=== PATIENT | female | born 1945 | race Caucasian/White ===

== ENCOUNTER 2016-08-06 06:27 | Inpatient (IN) | payer OTHER ==
[2016-07-19 13:23] VITALS: BMI 26.0
--- NOTE | 2016-07-19 14:04 | PAT Medication Instructions ---
Service Date Jul 19, 2016. Current Home Medication List Biotin (Biotin 5000), 1 TAB PO HS Cevimeline Hcl (Cevimeline Hcl), 30 MG PO TID Cholecalciferol (Vitamin D3), 1 TAB PO QAM Citalopram (Citalopram Hydrobromide), 2 MG PO HS Cyanocobalamin (Vitamin B-12), 1,000 MCG PO QAM Cyclosporine (Ophth) (Restasis), 1 DROP OP BID Esomeprazole Magnesium (Nexium), 20 MG PO QAM Fesoterodine Fumarate (Toviaz), 1 TAB PO HS Lorazepam (Ativan), 1 MG PO HS Mesalamine (Apriso), 4 CAP PO QAM Kqpidlmcyzj-Vatsj-Sjjsqexml Bl (Uribel), 1 CAP PO BID Metoprolol Tartrate (Lopressor) (Lopressor), 25 MG PO QAM Multiple Vitamins W/ Minerals (Ocuvite), 1 TAB PO NOON Oxycodone Ir (Roxicodone Ir), 10 MG PO HS PRN for Pain Pediatric Multiple Vitamin W/ (Gummi Bear Multivitamin/M), 1 TAB PO HS Probiotic Product (Probiotic), 1 CAP PO QAM Vitamins C & E (Vitamin C), 1 CAP PO NOON [Hydroxycut], 2 TAB PO BID Medication Instructions For Your Scheduled Surgery - Hold the following medications 10 days prior to surgery: Biotin (Biotin 5000), 1 TAB PO HS Vitamins C & E (Vitamin C), 1 CAP PO NOON - Hold the following medications 24 hours prior to surgery: Seqcoeudysr-Nvxis-Shglxjxpf Bl (Uribel), 1 CAP PO BID Hydroxycut 2 TAB PO BID - Hold the following medications the morning of surgery: Probiotic Product (Probiotic), 1 CAP PO QAM Multiple Vitamins W/ Minerals (Ocuvite), 1 TAB PO NOON Cyanocobalamin (Vitamin B-12), 1,000 MCG PO QAM Mesalamine (Apriso), 4 CAP PO QAM (can take after surgery) Cholecalciferol (Vitamin D3), 1 TAB PO QAM Cevimeline Hcl (Cevimeline Hcl), 30 MG PO TID (can take after surgery) - Take the following medications the morning of surgery with a sip of water: Metoprolol Tartrate (Lopressor) (Lopressor), 25 MG PO QAM Esomeprazole Magnesium (Nexium), 20 MG PO QAM Cyclosporine (Ophth) (Restasis), 1 DROP OP BID - Take the following medications as scheduled the night before surgery: Pediatric Multiple Vitamin W/ (Gummi Bear Multivitamin/M), 1 TAB PO HS Fesoterodine Fumarate (Toviaz), 1 TAB PO HS Lorazepam (Ativan), 1 MG PO HS Cyclosporine (Ophth) (Restasis), 1 DROP OP BID Citalopram (Citalopram Hydrobromide), 2 MG PO HS Oxycodone Ir (Roxicodone Ir), 10 MG PO HS PRN for Pain Cevimeline Hcl (Cevimeline Hcl), 30 MG PO TID If you have any questions please call us at [phone] or [phone] ( [place]) or [phone]
[2016-07-19 14:24] LABS: BASO % 0.3 %; BASO ABS # 0.02 K/uL (0-0.2); COMPLETE YES; EOS % 5.8 %; IG% 0.3 %; LYMPH % 22.2 %; LYMPH ABS # 1.56 K/uL (1.2-3.4); MEAN CELL VOLUME 92.3 fL (80-100); MEAN CORPUSCULAR HEMOGLOBIN 30.4 pg (25-34); MEAN PLATELET VOLUME 10.5 fL (7.4-10.4); MONO % 8.5 %; NEUT % 62.9 %; PLATELET COUNT 213 K/uL (130-400); RED BLOOD COUNT 4.01 M/uL (4.2-5.4); WHITE BLOOD COUNT 7.04 K/uL (4.8-10.8)
--- NOTE | 2016-07-19 14:27 | DIAGNOSTIC IMAGING REPORT ---
CHEST 2 VIEWS ROUTINE CLINICAL HISTORY: Preoperative evaluation. COMPARISON STUDY: No previous studies for comparison. FINDINGS: Lung volumes are normal. Lungs are clear. There is no pneumothorax or pleural effusion. Cardiac size is normal. Mediastinal contours are normal. No evidence of pulmonary edema. IMPRESSION: No acute cardiopulmonary findings. Electronically signed by: Goldy Masters M.D. 07/19/2016 2:25 PM Dictated Date/Time: 07/19/2016 2:25 PM
[2016-07-19 14:35] LABS: PARTIAL THROMBOPLASTIN RATIO 1.1; PROTHROMBIN TIME (PATIENT) 10.7 SECONDS (9.0-12.0)
[2016-07-19 14:56] LABS: BUN/CREATININE RATIO 14.8 (10-20); CALCIUM 9.1 mg/dl (8.5-10.1); POTASSIUM 4.3 mmol/L (3.5-5.1)
[2016-07-19 15:07] LABS: URINE APPEARANCE CLEAR (CLEAR); URINE BILIRUBIN NEG (NEG); URINE COLOR YELLOW; URINE NITRITE NEG (NEG); URINE PH 5.5 (4.5-7.5); URINE SPECIFIC GRAVITY 1.009 (1.000-1.030); UROBILINOGEN NEG (NEG); ZZUR CULT IF INDIC CLEAN CATCH NO
[2016-07-19 15:09] LABS: MANUAL MICROSCOPIC REQUIRED? NO; REVIEW REQ? NO
--- NOTE | 2016-08-03 08:39 | HISTORY & PHYSICAL EXAMINATION ---
DATE OF ADMISSION: 08/06/2016 CHIEF COMPLAINT: Right hip pain. HISTORY OF PRESENT ILLNESS: Raquel is a 71-year-old female with a multiple-year history of pain in her right hip. The patient rates her pain a 10/10. She has pain with her daily activities. She has limited standing and walking tolerance. Pain is worse with weightbearing. The patient has been ambulating with a cane. She has been taking oxycodone with minimal relief. She has failed conservative treatment and is scheduled for right hip replacement. PAST MEDICAL HISTORY: Anxiety, tachycardia and history of MRSA. She denies heart disease or DVT. PAST SURGICAL HISTORY: Partial hysterectomy, hemorrhoidectomy, hernia repair, left total hip, fatty tumor excision and bladder repair. SOCIAL HISTORY: The patient denies alcohol or tobacco use. She lives in a single story home. She is and retired but still works part-time as a [employer]. FAMILY HISTORY: Negative for DVT. MEDICATIONS: Restasis 0.05%, cevimeline 30 mg, Apriso ER 0.375 gram capsule daily, methenamine 1 gram, lorazepam 0.5 mg, metoprolol 25 mg, citalopram 20 mg, oxycodone 5 mg, testosterone fumarate 4 mg. ALLERGIES: BIAXIN, CAFFEINE, FLUMADINE, VICODIN, SULFALENE, SULFA, TERAZOL, TRAMADOL, CEPHALEXIN. REVIEW OF SYSTEMS: See HPI. Ten other systems reviewed, all negative. PHYSICAL EXAMINATION: VITAL SIGNS: Height 5 feet 1, weight 144 pounds, BMI is 27. GENERAL: This is a well-developed, well-nourished female who is alert and oriented x3. Mood and affect are appropriate. HEAD, EYES, EARS, NOSE, AND THROAT: Normocephalic, atraumatic. Mucous membranes are moist and intact. NECK: Supple without lymphadenopathy. HEART: Regular rate and rhythm without murmurs, rubs or gallops. LUNGS: Clear to auscultation without wheezes or rhonchi. ABDOMEN: Soft and nontender. Bowel sounds are equal and active. EXTREMITIES: No ecchymosis, redness or warmth. Thigh and calf are soft and nontender. Log roll of the hip reproduces pain in the groin. Range of motion is decreased. She is neurovascularly intact with +5/5 strength. X-RAY EXAMINATION: AP and lateral views show joint space narrowing and large osteophyte formation of the right hip. IMPRESSION: Degenerative joint disease, right hip. PLAN: The patient will be admitted for a right total hip arthroplasty. We will plan on aspirin for DVT prophylaxis. PCP is Dr. Meyers in [place]. The patient will have home physical therapy postoperatively.
[2016-08-06] VITALS (12 sets, daily range): BP systolic 85–126; BP diastolic 49–69; PULSE 63–90; TEMP 36.4–36.9; O2SAT 95–98; Ht 154.9 cm; Wt 65.5 kg
[~2016-08-06] VITALS: Ht 154.9 cm; Wt 65.5 kg
[~2016-08-06 06:27] MED LIST: ACETAMINOPHEN 500 MG TAB PO SCH; BIOTCAP2 PO; CEVI1CAP PO; CHOL1000 PO; CLINDAMYCIN 600 MG/54 ML D5W 54 ML IV SCH; CLX20 PO; CYAN10005 PO; CYCL0.052 OP; DEXAMETHASONE 4 MG TAB PO SCH; ESOM20CA PO; FAMOTIDINE 20 MG TAB PO SCH; FESO8TAB PO; GABAPENTIN 300 MG CAP PO SCH; HYDROXYCUT PO; LACTATED RINGER'S 1000ML 1,000 ML IV SCH; LACTATED RINGER'S 1000ML IV SCH; LORA-741 PO; MESA0.37 PO; METH118C PO; METO25TA56 PO; METOCLOPRAMIDE HCL 10 MG TAB PO SCH; MISCCAP80 PO; MULT-188 PO; OXYC1TAB3 PO; OXYCODONE HCL 10 MG TABCR (OXYCONTIN) PO SCH; PEDICHW34 PO; POLYMYXIN B SULFATE 100,000 UNITS in NSS 100ML IR SCH; ROPIVACAINE 5MG/ML 30 ML 150 MG, BUPIVACAINE/EPINEPHR 0.5% MPF 30 ML, KETOROLAC TROMETH... INFIL SCH; TRANEXAMIC ACID INJ 1,000 MG in SODIUM CHLORIDE 0.9% 100ML 100 ML IV SCH; VANCOMYCIN INJ 400 MG in NSS 100ML IR SCH; VITACAP26 PO
[2016-08-06] MEDS ORDERED: BUPIVACAINE 0.5 % 5 MG/1 ML PF 10ML VIAL ONE (06:29)
[2016-08-06] MEDS ORDERED: PROPOFOL IV EMULSION 10 MG/ML 20 ML VIAL IV ONE (07:36)
[2016-08-06] MEDS ORDERED: MIDAZOLAM HCL 1 MG/ML 2ML VIAL ONE ×2 (07:36)
[2016-08-06] MEDS ORDERED: FENTANYL CITRATE INJ 50 MCG/1 ML 2 ML VIAL ONE (07:36)
[2016-08-06] MEDS ORDERED: ONDANSETRON INJ 2 MG/ML 2 ML VIAL ONE (07:36)
[2016-08-06] MEDS ORDERED: LIDOCAINE HCL 2% 2 ML VIAL (20MG/ML) ONE (07:36)
--- NOTE | 2016-08-06 08:26 | History & Physical Bridge Note ---
H&P Re-Evaluation Bridge Note: I have examined the patient, reviewed the History & Physical and in the interval since the performance of the History & Physical I have noted the following changes of clinical significance: No changes noted
[2016-08-06] MEDS ORDERED: POVIDONE-IODINE OP SOLN 30 ML BTL ONE (08:59)
[2016-08-06] MEDS ORDERED: BACITRACIN 50000 UNIT VIAL ONE (08:59)
[2016-08-06] MEDS ORDERED: ORTHO JOINT ANESTHETIC ONE (08:59)
[2016-08-06] MEDS ORDERED: ONDANSETRON INJ 2 MG/ML 2 ML VIAL IV PRN ×2 (09:30→11:00)
[2016-08-06] MEDS ORDERED: EpHEDrine SULFATE INJ 50 MG/ML AMP IV PRN (09:30)
[2016-08-06] MEDS ORDERED: PHENYLEPHRINE 100MCG/ML 5ML SYR IV PRN (09:30)
[2016-08-06] MEDS ORDERED: HYDROmorphone INJ 2 MG/ML SYR/VIAL IV PRN (09:30)
[2016-08-06] MEDS ORDERED: ATROPINE SULFATE 0.1 MG/ML 5ML SYR IV PRN (09:30)
[2016-08-06] MEDS ORDERED: KETOROLAC TROMETHAMINE 30 MG/ML VIAL IV. PRN (09:30)
[2016-08-06] MEDS ORDERED: MAGNESIUM HYDROXIDE SUSP 30 ML UDC PO PRN (11:00)
[2016-08-06] MEDS ORDERED: ALUMINUM/MAGNESIUM/SIMETH (MAALOX MAX) 30 ML UDC PO PRN (11:00)
[2016-08-06] MEDS ORDERED: SOD PHOSPHATE/SOD BIPHOSPHATE ENEMA 132 ML BTL PR PRN (11:00)
[2016-08-06] MEDS ORDERED: DiphenhydrAMINE HCL 50 MG/ML VIAL IV PRN (11:00)
[2016-08-06] MEDS ORDERED: MoRPHine SULFATE 2 MG/ML CARP IV PRN (11:00)
[2016-08-06] MEDS ORDERED: ZOLPIDEM TARTRATE 5 MG TAB PO PRN (11:00)
[2016-08-06] MEDS ORDERED: BISACODYL 10 MG SUPP PR PRN (11:00)
[2016-08-06] MEDS ORDERED: METOCLOPRAMIDE HCL INJ 5 MG/ML 2 ML VIAL IV PRN (11:00)
--- NOTE | 2016-08-06 11:00 | [facility] Post Operative Brief Note ---
Immediate Operative Summary Operative Date Aug 06, 2016. Pre-Operative Diagnosis Right Hip Degenerative Joint Disease Post-Operative Diagnosis Right Hip Degenerative Joint Disease Procedure(s) Performed Right Total Hip Arthroplasty, Direct Anterior Approach Surgeon Dr. Saad Donovan Monotyper Surgeon(s) Estefania Sandoval PA-C Estimated Blood Loss 75 mL Findings DJD Specimens A: Right Femoral Head Complication(s) None Disposition Recovery Room / PACU
--- NOTE | 2016-08-06 11:04 | DIAGNOSTIC IMAGING REPORT ---
RIGHT HIP UNILATERAL 1 VIEW CLINICAL HISTORY: RIGHT ANTERIOR HIP Right trauma placement COMPARISON: None. DISCUSSION: Single projection right hip status post total right hip arthroplasty IMPRESSION: Single projection right hip status post total right hip arthroplasty Electronically signed by: Albino Lucas M.D. 08/06/2016 11:02 AM Dictated Date/Time: 08/06/2016 11:02 AM
--- NOTE | 2016-08-06 11:57 | DIAGNOSTIC IMAGING REPORT ---
SINGLE VIEW PELVIS; SINGLE VIEW RIGHT HIP CLINICAL HISTORY: Postoperative examination. FINDINGS: An AP portable view of the hips and lower pelvis and a crosstable lateral portable view of the right hip are obtained. The skeletal structures are osteopenic. A bipolar right hip arthroplasty is in near-anatomic alignment. A single cortical lag screw transfixes the acetabular cup. No acute fracture is seen. There are expected postoperative changes overlying the right hip including subcutaneous gas, soft tissue swelling, and a surgical drain. A left hip arthroplasty is also noted. There is atherosclerotic calcification of the femoral arteries. IMPRESSION: Expected postoperative findings status post right hip arthroplasty. No acute fracture is seen. Electronically signed by: Jerome Medina M.D. 08/06/2016 11:55 AM Dictated Date/Time: 08/06/2016 11:54 AM
--- NOTE | 2016-08-06 13:36 | Anesthesiology Progress Note ---
Anesthesia Post Op Note Date & Time Aug 06, 2016 at 13:36 Vital Signs Pain Intensity: 0.0 Vital Signs Past 12 Hours Date Time Temp Pulse Resp B/P Pulse Ox O2 Delivery O2 Flow Rate FiO2 08/06/16 13:32 96 Nasal Cannula 2.0 08/06/16 13:02 96 Nasal Cannula 2.0 08/06/16 13:02 36.8 86 16 96/59 96 Nasal Cannula 2.0 08/06/16 12:55 80 15 103/61 96 Nasal Cannula 2 08/06/16 12:40 37.0 87 16 102/57 97 Nasal Cannula 2 08/06/16 12:30 82 12 92/57 95 Nasal Cannula 2 08/06/16 12:20 81 12 93/58 96 Nasal Cannula 2 08/06/16 12:10 80 12 96/60 96 Nasal Cannula 2 08/06/16 12:00 81 13 87/64 97 Nasal Cannula 2 08/06/16 11:50 81 12 90/67 97 Nasal Cannula 2 08/06/16 11:40 81 18 82/54 98 Nasal Cannula 2 08/06/16 11:30 80 12 104/62 100 Mask 10 08/06/16 11:23 36.8 82 12 108/61 99 Mask 10 08/06/16 06:59 36.8 69 20 123/66 96 Room Air Notes Mental Status: alert / awake / arousable, participated in evaluation Pt Amnestic to Procedure: Yes Nausea / Vomiting: adequately controlled Pain: adequately controlled Airway Patency, RR, SpO2: stable & adequate BP & HR: stable & adequate Hydration State: stable & adequate Anesthetic Complications: no major complications apparent
[2016-08-06] MEDS: KETOROLAC TROMETHAMINE 15 MG/ML VIAL IV. SCH ×2 (13:53→19:24)
[2016-08-06] MEDS: D5W AND 1/2NSS + 20MEQ KCL 1,000 ML IV SCH ×2 (14:39→23:26)
[2016-08-06] MEDS: ACETAMINOPHEN 500 MG TAB PO SCH ×2 (15:37→23:27)
--- NOTE | 2016-08-06 16:18 | OPERATIVE REPORT ---
DATE OF OPERATION: 08/06/2016 PREOPERATIVE DIAGNOSIS: Degenerative arthritis, right hip. POSTOPERATIVE DIAGNOSIS: Same. PROCEDURE: Right total hip replacement. SURGEON: Saad Donovan MD GIRLS TENNIS COACH: KENNY Collier ANESTHESIA: Spinal. BLOOD LOSS: 75 mL. REPLACEMENT FLUIDS: 1500 mL crystalloid. DRAINS: Hemovacs x1. CULTURES: None. COMPLICATIONS: None. COMPONENTS USED: [employer] Polar hip system: Acetabulum size 50, femur size 2 standard offset, femoral head -3, 32 mm. NOTE: KENNY Collier was present and assisted throughout due to the complicated nature of this case. She helped with preparation and set up. She first assisted throughout and personally closed the fascial, subcutaneous and skin layers and applied the postoperative dressing. DESCRIPTION OF PROCEDURE: Following satisfactory spinal, the patient was supine. The right leg was placed in the traction device and the left leg in the well leg flores. The leg was prepared with ChloraPrep and draped sterilely. Following a surgical time-out, an anterior approach in the interval between the sartorius and tensor muscles was completed. The circumflex femoral vessels were identified and ligated. An anterior capsulotomy was performed exposing the arthritic femoral neck and head. The femoral neck and head were trimmed and removed. The acetabular self-retraining retractor was placed. Acetabular reaming was completed and under fluoroscopic guidance, a 50 shell was impacted into an anatomic position and secured with a dome screw. The cross-linked poly liner was placed after irrigation and local anesthetic. The femur was placed into position of external rotation, extension and adduction. Femoral canal was prepared up to the size 2. Intraoperative fluoroscopy showed good fit and fill of the proximal canal and mu-ism of leg lengths using anatomic landmarks with fluoroscopy. The trial component was removed. The final implant was placed and after local anesthetic and irrigation, the hip was reduced with fluoroscopy confirming the similar position. A Betadine soak was performed for 5 minutes. The capsule was then closed with #1 Vicryl interrupted. A drain was placed deep. The fascia was closed with a running suture of #1 Vicryl, the subcutaneous tissues with 2-0 Vicryl and the skin with a running subcuticular stitch of 3-0 V-Loc. Dermabond and a dry dressing were applied. The patient was returned to her bed in stable condition. I attest to the content of the Intraoperative Record and any orders documented therein. Any exceptio ns are noted below.
[2016-08-06] MEDS ORDERED: TRANEXAMIC ACID INJ 1,000 MG in SODIUM CHLORIDE 0.9% 100ML 100 ML IV SCH (18:00)
[2016-08-06] MEDS: CLINDAMYCIN IV 600 MG in DEXTROSE 5% ADD-VANTAGE 50ML 50 ML IV SCH (18:32)
[2016-08-06] MEDS ORDERED: SODIUM CHLORIDE 0.9% 500ML 500 ML IV ONE (19:00)
--- NOTE | 2016-08-06 19:27 | Medical Consult ---
Consultation Date of Consultation: Aug 06, 2016. Attending Physician: Saad Donovan M.D. Reason for Consultation: Hypotension History of Present Illness Patient is a 71 year old female s/p Right Total Hip Replacement that took place morning. The patient has a past medical history of GERD, arthritis, Left Total Hip Replacement, and anxiety. The hospitalist service was called to consult on the patient for hypotension. Surgery this afternoon was successful with an EBL of 75ml and the patient received 1500mL of crystalloid fluid during the surgery. The patient has also had a recorded output of 75ml to her wound vac since surgery. During surgery the patient received spinal anesthesia. Patient has been getting IV fluid replacement since the surgery of 100ml/hr ( approximately 500mL so far). At bedside the patient does complain of some left hip discomfort after the surgery, but denies any other pain, fever, cough, shortness of breath, headache , light headedness, or changes in vision. The incision area looks c/d/i surrounded by a wound vac. There is no erythema or warm to the surgical area. The patient is alert & oriented x 3. Family History No family history of reactions to anesthesia Social History Smoking Status: Never Smoker Smokeless Tobacco Use: No Alcohol Use: none Allergies Coded Allergies: Adhesives (Verified Allergy, Mild, TEARS SKIN AND RED SORE, 08/06/16) Cephalexin (Verified Allergy, Mild, RASH, 08/06/16) Clarithromycin (Verified Allergy, Mild, UPSET STOMACH, 08/06/16) Hydrocodone (Verified Allergy, Mild, GI UPSET, 08/06/16) Rimantadine (Verified Allergy, Mild, UNSURE, 08/06/16) Sulfa Antibiotics (Verified Allergy, Mild, UPSET STOMACH, 08/06/16) Terconazole (Verified Allergy, Mild, UNSURE, 08/06/16) Tramadol (Verified Allergy, Mild, UPSET STOMACH, 08/06/16) Aspirin (Unverified Allergy, Unknown, per PCP note , 08/06/16) Penicillins (Unverified Allergy, Unknown, per PCP note , 08/06/16) Caffeine (Verified Adverse Reaction, Mild, HYPER, 08/06/16) Current Inpatient Medications Current Inpatient Medications Medications (Trade) Dose Ordered Sig/Fei Route Start Time Stop Time Status Last Admin Dose Admin Potassium Chloride/Dextrose/ Sod Cl 1,000 ml @ 100 mls/hr Q10H IV 08/06/16 14:00 08/07/16 13:59 08/06/16 14:39 100 MLS/HR Clindamycin Phosphate/Dextrose (Cleocin Iv/ Dextrose Add-[place] 50ML) 54 ml @ 100 mls/hr Q8H IV 08/06/16 18:00 08/07/16 02:33 08/06/16 18:32 100 MLS/HR Ketorolac Tromethamine (Toradol Inj) 15 mg Q6H IV. 08/06/16 14:00 08/08/16 13:59 08/06/16 13:53 15 MG Celecoxib (CeleBREX CAP) 200 mg BID PO 08/08/16 21:00 09/07/16 20:59 Oxycodone HCl (Roxicodone Immediate Rel Tab) 1 TABLET FOR PAIN RATING... Q4H PRN PO 08/06/16 11:00 08/20/16 10:59 Morphine Sulfate (MoRPHine SULFATE INJ) 2 mg Q2HWA PRN IV 08/06/16 11:00 08/20/16 10:59 Acetaminophen (Tylenol Tab) 1,000 mg Q8H PO 08/06/16 16:00 08/08/16 15:59 08/06/16 15:37 1,000 MG Magnesium Hydroxide (Milk Of Magnesia Susp) 30 ml Q6H PRN PO 08/06/16 11:00 09/05/16 10:59 Bisacodyl (Dulcolax Supp) 10 mg DAILY PRN WI 08/06/16 11:00 09/05/16 10:59 Sodium Biphosphate/ Sodium Phosphate (Fleet Enema) 132 ml DAILY PRN WI 08/06/16 11:00 09/05/16 10:59 Senna (Senokot Tab) 17.2 mg HS PO 08/06/16 21:00 09/05/16 20:59 Diphenhydramine HCl (Benadryl Cap) 25 mg Q8H PRN PO 08/06/16 11:00 09/05/16 10:59 Diphenhydramine HCl (Benadryl Inj) 25 mg Q8H PRN IV 08/06/16 11:00 09/05/16 10:59 Al Hydrox/Mg Hydrox/Simethicone (Maalox Max Susp) 15 ml Q4H PRN PO 08/06/16 11:00 09/05/16 10:59 Zolpidem Tartrate (Ambien Tab) 5 mg HSZ PRN PO 08/06/16 11:00 09/05/16 10:59 Multivitamins (Multivitamin Tab) 1 tab QAM PO 08/07/16 09:00 09/06/16 08:59 Ondansetron HCl (Zofran Inj) 4 mg Q6H PRN IV 08/06/16 11:00 09/05/16 10:59 Metoclopramide HCl (Reglan Inj) 10 mg Q6H PRN IV 08/06/16 11:00 09/05/16 10:59 Pantoprazole Sodium (Protonix Tab) 40 mg QAM PO 08/07/16 09:00 09/06/16 08:59 Aspirin (Ecotrin Tab) 81 mg BID PO 08/06/16 21:00 09/05/16 20:59 Cholecalciferol (Vitamin D Tab) 1,000 inter.unit QAM PO 08/07/16 09:00 09/06/16 08:59 Citalopram Hydrobromide (celeXA TAB) 20 mg HS PO 08/06/16 21:00 09/05/16 20:59 Cyanocobalamin (Vitamin B-12 Tab) 1,000 mcg QAM PO 08/07/16 09:00 09/06/16 08:59 Lorazepam (Ativan Tab) 1 mg HS PO 08/06/16 21:00 09/05/16 20:59 Metoprolol Tartrate (Lopressor Tab) 25 mg QAM PO 08/07/16 09:00 09/06/16 08:59 Miscellaneous Information (Order Awaiting Action) 1 ea QS N/A 08/06/16 16:00 09/05/16 15:59 Miscellaneous Information (Order Awaiting Action) 1 ea QS N/A 08/06/16 16:00 09/05/16 15:59 Miscellaneous Information (Order Awaiting Action) 1 ea QS N/A 08/06/16 16:00 09/05/16 15:59 Miscellaneous Information 1 ea 1 ea QS N/A 08/06/16 16:00 09/05/16 15:59 Sodium Chloride (Nss 500ml) 0 ml @ 999 mls/hr Q0M ONCE IV 08/06/16 19:00 08/06/16 19:01 UNV Review of Systems Constitutional: No chills, No fever, No weight loss Respiratory: No cough, No shortness of breath, No sputum Cardiovascular: No chest pain, No palpitations Abdomen: No nausea, No pain, No vomiting Genitourinary - Female: No dysuria Endocrine: No fatigue Physical Exam Date Time Temp Pulse Resp B/P Pulse Ox O2 Delivery O2 Flow Rate FiO2 08/06/16 16:54 69 85/51 08/06/16 16:05 36.5 82 18 87/49 97 Nasal Cannula 2.0 08/06/16 15:04 36.4 80 16 98/61 98 Nasal Cannula 2.0 08/06/16 14:04 90 16 93/58 97 Ambu-Bag 2.0 08/06/16 13:39 36.7 79 16 97/61 98 Nasal Cannula 2.0 08/06/16 13:32 96 Nasal Cannula 2.0 08/06/16 13:02 96 Nasal Cannula 2.0 08/06/16 13:02 36.8 86 16 96/59 96 Nasal Cannula 2.0 08/06/16 12:55 80 15 103/61 96 Nasal Cannula 2 08/06/16 12:40 37.0 87 16 102/57 97 Nasal Cannula 2 08/06/16 12:30 82 12 92/57 95 Nasal Cannula 2 08/06/16 12:20 81 12 93/58 96 Nasal Cannula 2 08/06/16 12:10 80 12 96/60 96 Nasal Cannula 2 08/06/16 12:00 81 13 87/64 97 Nasal Cannula 2 08/06/16 11:50 81 12 90/67 97 Nasal Cannula 2 08/06/16 11:40 81 18 82/54 98 Nasal Cannula 2 08/06/16 11:30 80 12 104/62 100 Mask 10 08/06/16 11:23 36.8 82 12 108/61 99 Mask 10 08/06/16 06:59 36.8 69 20 123/66 96 Room Air General Appearance: WD/WN, no apparent distress Neck: supple, no adenopathy, no carotid bruits Respiratory/Chest: chest non-tender, lungs clear, normal breath sounds Cardiovascular: regular rate, rhythm, no edema, no gallop, no murmur Abdomen/GI: normal bowel sounds, non tender, soft Extremities/Musculoskelatal: + pertinent finding (Wound vac covering right him , c/d/i, non erythematous, no acute swelling, no gross bleeding) Neurologic/Psych: alert, normal mood/affect, oriented x 3 Assessment & Plan Patient is a 71 year old female that presents with hypotension s/p Right Total Hip Replacement 1) Hypotension - Possibly secondary to spinal anesthesia - Will give patient a 500mL bolus of IV NS - Vitals q2h with instructions to call MD with SBP < 80 - Hold Morphine with low blood pressures - Transfer to telemetry if continued hypotension with bolus - Hgb 12.2 - Afebrile 2) Tachycardia - Metoprolol 25mg PO Daily 3) GERD - Protonix 40mg PO Daily 4) Anxiety - Ativan 1mg PO Daily 5) Depression - Celexa 20mg PO Daily 6) Arthritis - Celebrex 200mg PO Daily
[2016-08-06] MEDS: OXYCODONE HCL IR 5 MG TAB (IMMEDIATE RELEASE) PO PRN (20:11)
[2016-08-06] MEDS: CITALOPRAM 20 MG TAB PO SCH (21:27)
[2016-08-06] MEDS: SENNA 8.6 MG TAB PO SCH (21:27)
[2016-08-06] MEDS: ASPIRIN 81 MG ECTAB PO SCH (21:28)
[2016-08-06] MEDS: LORAZEPAM 1 MG TAB PO SCH (21:29)
[2016-08-07] VITALS (8 sets, daily range): BP systolic 108–134; BP diastolic 61–81; PULSE 58–72; TEMP 36.4–37; O2SAT 93–99
[2016-08-07] MEDS: CLINDAMYCIN IV 600 MG in DEXTROSE 5% ADD-VANTAGE 50ML 50 ML IV SCH (02:05)
[2016-08-07] MEDS: KETOROLAC TROMETHAMINE 15 MG/ML VIAL IV. SCH ×4 (02:06→19:41)
[2016-08-07 07:15] LABS: COMPLETE YES; EOS % 0.1 %; HEMATOCRIT 28.8 % (37-47); IG% 0.3 %; LYMPH % 6.6 %; LYMPH ABS # 1.03 K/uL (1.2-3.4); MEAN CELL VOLUME 91.1 fL (80-100); MEAN CORPUSCULAR HEMOGLOBIN 30.7 pg (25-34); MEAN CORPUSCULAR HGB CONC 33.7 g/dl (32-36); MEAN PLATELET VOLUME 10.7 fL (7.4-10.4); MONO % 4.3 %; NEUT % 88.7 %; PLATELET COUNT 180 K/uL (130-400); RED BLOOD COUNT 3.16 M/uL (4.2-5.4); WHITE BLOOD COUNT 15.58 K/uL (4.8-10.8)
[2016-08-07 07:39] LABS: BUN/CREATININE RATIO 16.2 (10-20); CALCIUM 8.3 mg/dl (8.5-10.1); CREATININE 1.1 mg/dl (0.60-1.20); POTASSIUM 4.2 mmol/L (3.5-5.1)
[2016-08-07] MEDS: ACETAMINOPHEN 500 MG TAB PO SCH ×2 (08:32→16:45)
[2016-08-07] MEDS: ASPIRIN 81 MG ECTAB PO SCH ×2 (08:32→20:45)
[2016-08-07] MEDS: METOPROLOL TARTRATE 25 MG TAB PO SCH (08:33)
[2016-08-07] MEDS: CHOLECALCIFEROL 1000 INTER.UNIT TAB PO SCH (08:33)
[2016-08-07] MEDS: PANTOprazole SOD 40 MG TAB PO SCH (08:34)
[2016-08-07] MEDS: CYANOCOBALAMIN 500 MCG TAB (VIT B-12) PO SCH (08:34)
[2016-08-07] MEDS: MULTIVITAMIN TAB PO SCH (08:34)
--- NOTE | 2016-08-07 09:36 | Orthopedic Progress Note ---
Orthopedic Progress Note Date of Service Aug 07, 2016. Subjective Post OP Day: 1 Reports: feeling well, Denies: SOB, calf pain, chest pain, light headedness, nausea / vomiting Objective calves soft nontender, N/V intact, dressing C/D/I, A&O x3, toes mobile, hemovac drainage (225/80cc per shift) Date Time Temp Pulse Resp B/P Pulse Ox O2 Delivery O2 Flow Rate FiO2 08/07/16 09:11 Room Air 08/07/16 09:00 58 120/80 08/07/16 07:43 Room Air 08/07/16 06:55 37.0 71 16 108/61 99 Room Air 08/07/16 04:41 36.6 65 16 119/63 97 Room Air 08/07/16 02:27 36.7 61 16 131/68 93 Room Air 08/06/16 23:32 36.8 63 16 126/69 95 Room Air 08/06/16 23:10 Room Air 08/06/16 21:30 36.9 08/06/16 21:11 36.5 71 18 113/68 98 Room Air 08/06/16 19:45 36.4 67 18 117/69 97 Room Air 08/06/16 16:54 69 85/51 08/06/16 16:05 36.5 82 18 87/49 97 Nasal Cannula 2.0 08/06/16 16:00 Nasal Cannula 2.0 08/06/16 15:04 36.4 80 16 98/61 98 Nasal Cannula 2.0 08/06/16 14:04 90 16 93/58 97 Ambu-Bag 2.0 08/06/16 13:39 36.7 79 16 97/61 98 Nasal Cannula 2.0 08/06/16 13:32 96 Nasal Cannula 2.0 08/06/16 13:02 96 Nasal Cannula 2.0 08/06/16 13:02 36.8 86 16 96/59 96 Nasal Cannula 2.0 08/06/16 12:55 80 15 103/61 96 Nasal Cannula 2 08/06/16 12:40 37.0 87 16 102/57 97 Nasal Cannula 2 08/06/16 12:30 82 12 92/57 95 Nasal Cannula 2 08/06/16 12:20 81 12 93/58 96 Nasal Cannula 2 08/06/16 12:10 80 12 96/60 96 Nasal Cannula 2 08/06/16 12:00 81 13 87/64 97 Nasal Cannula 2 08/06/16 11:50 81 12 90/67 97 Nasal Cannula 2 08/06/16 11:40 81 18 82/54 98 Nasal Cannula 2 08/06/16 11:30 80 12 104/62 100 Mask 10 08/06/16 11:23 36.8 82 12 108/61 99 Mask 10 Laboratory Results 24 Hours: Test 08/07/16 06:30 White Blood Count 15.58 K/uL Red Blood Count 3.16 M/uL Hemoglobin 9.7 g/dL Hematocrit 28.8 % Mean Corpuscular Volume 91.1 fL Mean Corpuscular Hemoglobin 30.7 pg Mean Corpuscular Hemoglobin Concent 33.7 g/dl Platelet Count 180 K/uL Mean Platelet Volume 10.7 fL Neutrophils (%) (Auto) 88.7 % Lymphocytes (%) (Auto) 6.6 % Monocytes (%) (Auto) 4.3 % Eosinophils (%) (Auto) 0.1 % Basophils (%) (Auto) 0.0 % Neutrophils # (Auto) 13.82 K/uL Lymphocytes # (Auto) 1.03 K/uL Monocytes # (Auto) 0.67 K/uL Eosinophils # (Auto) 0.01 K/uL Basophils # (Auto) 0.00 K/uL Assessment & Plan Assessment: POD#1 sp right DAMARI, direct anterior Inhouse Planning Pain Management: PO Tylenol, Oxy IR DVT Prophylaxis: TEDs, SCDs, ASA Discharge Planning Discharge Planning: home with home health (likely [place] weds.)
[2016-08-07] MEDS: D5W AND 1/2NSS + 20MEQ KCL 1,000 ML IV SCH (10:00)
--- NOTE | 2016-08-07 12:09 | Discharge Instructions ---
Discharge Instructions Admission Reason for Admission: Right Hip Degenerative Arthritis Discharge Discharge Diagnosis / Problem: SP RIGHT DAMARI, DIRECT ANTERIOR Discharge Goals Goal(s): Decrease discomfort, Improve function, Increase independence Activity Recommendations Activity Limitations: per Instructions/Follow-up section . Instructions / Follow-Up Instructions / Follow-Up ACTIVITY RECOMMENDATIONS: SELF CARE INSTRUCTIONS AFTER TOTAL HIP REPLACEMENT : Direct Anterior Approach Until the incision and soft tissues around your hip have healed, there is a possibility that the hip prosthesis could dislocate. A. Hip flexion ( Up & Down out of chair or steps ) may be difficult. This is normal. B. Numbness in front of the thigh is also normal for a few weeks. C. Use hand rails when walking on stairs. D. Wear low heeled shoes with non-slip soles. E. Be sure that your floors are free of things that could trip you - throw rugs , electrical cords, small objects. Avoid wet and waxed floors, especially with crutches and canes. F. Try to walk several times a day with rest periods between. G. Continue with all the exercises taught to you in the hospital. Again, make walking a part of your daily routine. SPECIAL CARE INSTRUCTIONS: VERY IMPORTANT TO READ AND REVIEW A. You may still be at risk for phlebitis and blood clots. 1. Wear surgical stockings (STU hose) for 2 weeks after surgery to improve circulation and reduce swelling. 2. Take Aspirin 81mg twice daily for 4 weeks or as directed by your doctor. This is your blood thinner. 3. High risk patients may be prescribed a stronger blood thinner if necessary. 4. If you are on Coumadin normally, your family doctor/rehab care assistant should monitor your blood work. Expect a phone call the day of or the day after bloodwork is drawn to adjust your dosage. B. You must take antibiotics before having dental work, bladder, bowel and other surgery. Your doctor will provide you with a permanent card to carry describing precautions. C. Call [facility] if you have a fever, redness or swelling around the incision, cloudy drainage from incision, or sudden increase in pain in your hip, not relieved by your regular pain medication. D. Please call the office at if you have any concerns or questions about your operation or recovery. * YOU MAY SHOWER, NO TUB BATHS UNTIL CLEARED BY YOUR DOCTOR. - Keep an extra close eye on the top portion of your incision. Be sure to keep clean & dry. * WEAR STU HOSE 20 HOURS PER DAY FOR 2 WEEKS. * YOU MAY PROGRESS FROM A WALKER, TO A CANE, TO INDEPENDENT AT YOUR OWN PACE. * MOST PATIENTS WILL HAVE HOME NURSING FOR THERAPY. IF YOU DECIDE TO DO OUTPATIENT PHYSICAL THERAPY, PLEASE SCHEDULE THIS 3 TIMES PER WEEK. KEEP SURGICAL DRESSING ON X 7 DAYS IF LABELED TO DO SO. AFTER 7 DAYS REMOVE AND FOLLOW THE INSTRUCTIONS BELOW FOR REMAINING DRESSING. * DERMABOND Prineo- This is a mesh tape dressing that is covered with glue. It should remain in place until the incision is properly healed, usually 10-14 days. This dressing is designed to naturally slough off. You may trim the excess mesh tape as it peels off. Incision may be briefly wet in a shower. Dry immediately by blotting with a clean, dry towel. Do not bath or swim until instructed by your doctor. Do not scratch, rub, or pick at the dressing. Do not apply any topical ointments or lotions until dressing is completely removed and/or instructed by your doctor. There may be a small piece of suture material at one end of your incision. Do not pull or trim this. If it is bothersome or catching on clothing, you may cover it with a band-aid. FOLLOW UP VISIT: If appointment is not already scheduled: Please call [facility] to make a follow-up appointment for 2 weeks after your surgery at . Current Hospital Diet Patient's current hospital diet: Regular Diet Discharge Diet Recommended Diet: Regular Diet Procedures Procedures Performed: Right Total Hip Arthroplasty, Direct Anterior Approach Pending Studies Studies pending at discharge: no Medical Emergencies . Who to Call and When: Medical Emergencies: If at any time you feel your situation is an emergency, please call 911 immediately. . Non-Emergent Contact Non-Emergency issues call your: Primary Care Provider . "Provider Documentation" section prepared by Estefania Sandoval. VTE Core Measure Inpt VTE Proph given/why not?: Other Anticoagulation, T.E.D. Stockings, SCD's [place] Drug Monitoring Program Search Results: patient reviewed within database, no issues identified
[2016-08-07] MEDS: OXYCODONE HCL IR 5 MG TAB (IMMEDIATE RELEASE) PO PRN ×2 (14:39→20:44)
--- NOTE | 2016-08-07 16:21 | Anesthesiology Progress Note ---
Anesthesia Post Op Note Date & Time Aug 07, 2016 at 16:20 Vital Signs Vital Signs Past 12 Hours Date Time Temp Pulse Resp B/P Pulse Ox O2 Delivery O2 Flow Rate FiO2 08/07/16 15:11 36.6 72 18 123/81 98 Room Air 08/07/16 12:15 66 125/70 08/07/16 11:43 36.4 62 134/76 08/07/16 10:42 37.0 58 16 99 Room Air 08/07/16 09:11 Room Air 08/07/16 09:00 58 120/80 08/07/16 07:43 Room Air 08/07/16 06:55 37.0 71 16 108/61 99 Room Air 08/07/16 04:41 36.6 65 16 119/63 97 Room Air Notes Mental Status: alert / awake / arousable, participated in evaluation Pt Amnestic to Procedure: Yes Nausea / Vomiting: adequately controlled Pain: adequately controlled Airway Patency, RR, SpO2: stable & adequate BP & HR: stable & adequate Hydration State: stable & adequate Neuraxial Anesthesia: sensory block resolved Anesthetic Complications: no major complications apparent
--- NOTE | 2016-08-07 16:58 | Hospitalist Progress Note ---
Hospitalist Progress Note Date of Service Aug 07, 2016. Subjective Pt evaluation today including: conversation w/ patient, physical exam, chart review, lab review, review of studies, review of inpatient medication list Patient had no acute issues Denies any chest pain, SOB, fevers Constitutional: No fever Eyes: No worsening of vision ENT: No hearing loss Respiratory: No cough, No shortness of breath Cardiovascular: No chest pain, No edema Abdomen: No constipation, No diarrhea, No pain, No vomiting Musculoskeletal: No joint pain Female : No abnormal vaginal bleeding, No dysuria, No hematuria Neurologic: No memory loss Psychiatric: No depression symptoms Heme: No abnormal bleeding/bruising Endo: No fatigue Skin: No color change, No new/changing skin lesions, No rash Objective Vital Signs Date Time Temp Pulse Resp B/P Pulse Ox O2 Delivery O2 Flow Rate FiO2 08/07/16 15:11 36.6 72 18 123/81 98 Room Air 08/07/16 12:15 66 125/70 08/07/16 11:43 36.4 62 134/76 08/07/16 10:42 37.0 58 16 99 Room Air 08/07/16 09:11 Room Air 08/07/16 09:00 58 120/80 08/07/16 07:43 Room Air 08/07/16 06:55 37.0 71 16 108/61 99 Room Air 08/07/16 04:41 36.6 65 16 119/63 97 Room Air 08/07/16 02:27 36.7 61 16 131/68 93 Room Air 08/06/16 23:32 36.8 63 16 126/69 95 Room Air 08/06/16 23:10 Room Air 08/06/16 21:30 36.9 08/06/16 21:11 36.5 71 18 113/68 98 Room Air 08/06/16 19:45 36.4 67 18 117/69 97 Room Air Physical Exam General Appearance: WD/WN, no apparent distress Eyes: normal inspection ENT: normal ENT inspection Neck: supple Respiratory/Chest: chest non-tender, lungs clear Cardiovascular: regular rate, rhythm, no edema Abdomen: normal bowel sounds, non tender Extremities: normal range of motion, non-tender Neurologic/Psychiatric: thiokol operator II-XII nml as tested, no motor/sensory deficits, alert, + abnormal cerebellar tests Skin: normal color Lymphatic: no adenopathy Laboratory Results Last 24 Hours Test 08/07/16 06:30 White Blood Count 15.58 K/uL Red Blood Count 3.16 M/uL Hemoglobin 9.7 g/dL Hematocrit 28.8 % Mean Corpuscular Volume 91.1 fL Mean Corpuscular Hemoglobin 30.7 pg Mean Corpuscular Hemoglobin Concent 33.7 g/dl Platelet Count 180 K/uL Mean Platelet Volume 10.7 fL Neutrophils (%) (Auto) 88.7 % Lymphocytes (%) (Auto) 6.6 % Monocytes (%) (Auto) 4.3 % Eosinophils (%) (Auto) 0.1 % Basophils (%) (Auto) 0.0 % Neutrophils # (Auto) 13.82 K/uL Lymphocytes # (Auto) 1.03 K/uL Monocytes # (Auto) 0.67 K/uL Eosinophils # (Auto) 0.01 K/uL Basophils # (Auto) 0.00 K/uL RDW Standard Deviation 42.7 fL RDW Coefficient of Variation 12.7 % Immature Granulocyte % (Auto) 0.3 % Immature Granulocyte # (Auto) 0.05 K/uL Sodium Level 135 mmol/L Potassium Level 4.2 mmol/L Chloride Level 103 mmol/L Carbon Dioxide Level 21 mmol/L Anion Gap 11.0 mmol/L Blood Urea Nitrogen 18 mg/dl Creatinine 1.10 mg/dl Est Creatinine Clear Calc Drug Dose 40.0 ml/min Estimated GFR () 58.1 Estimated GFR (Non- 50.1 BUN/Creatinine Ratio 16.2 Random Glucose 157 mg/dl Calcium Level 8.3 mg/dl Assessment and Plan Patient is a 71 year old female that presented with with hypotension s/p Right Total Hip Replacement Hypotension - Possibly secondary to spinal anesthesia -resolved POD #1 s/p Right Total Hip replacement - pain control per ortho - PT/OT Tachycardia - Metoprolol 25mg PO Daily GERD - Protonix 40mg PO Daily 4) Anxiety - Ativan 1mg PO Daily Depression - Celexa 20mg PO Daily Arthritis - Celebrex 200mg PO Daily
[2016-08-07] MEDS: LORAZEPAM 1 MG TAB PO SCH (20:44)
[2016-08-07] MEDS: SENNA 8.6 MG TAB PO SCH (20:45)
[2016-08-07] MEDS: CITALOPRAM 20 MG TAB PO SCH (20:45)
[2016-08-08 00:30] VITALS: BP 106/56; PULSE 68; TEMP 36.4; O2SAT 96
[2016-08-08] MEDS: ACETAMINOPHEN 500 MG TAB PO SCH ×2 (00:31→07:30)
[2016-08-08] MEDS: KETOROLAC TROMETHAMINE 15 MG/ML VIAL IV. SCH ×2 (02:00→07:28)
[2016-08-08 06:04] VITALS: BP 119/64; PULSE 60; TEMP 36.7; O2SAT 97
[2016-08-08] MEDS: ASPIRIN 81 MG ECTAB PO SCH (07:31)
[2016-08-08] MEDS: CYANOCOBALAMIN 500 MCG TAB (VIT B-12) PO SCH (07:31)
[2016-08-08] MEDS: OXYCODONE HCL IR 5 MG TAB (IMMEDIATE RELEASE) PO PRN (07:31)
[2016-08-08] MEDS: MULTIVITAMIN TAB PO SCH (07:32)
[2016-08-08] MEDS: METOPROLOL TARTRATE 25 MG TAB PO SCH (07:32)
[2016-08-08] MEDS: PANTOprazole SOD 40 MG TAB PO SCH (07:32)
[2016-08-08] MEDS: CHOLECALCIFEROL 1000 INTER.UNIT TAB PO SCH (07:33)
--- NOTE | 2016-08-08 07:49 | Orthopedic Progress Note ---
Orthopedic Progress Note Date of Service Aug 08, 2016. Subjective Post OP Day: 2 Reports: feeling well, Denies: SOB, calf pain, chest pain, light headedness, nausea / vomiting Objective calves soft nontender, N/V intact, hip located, dressing C/D/I, A&O x3, toes mobile Date Time Temp Pulse Resp B/P Pulse Ox O2 Delivery O2 Flow Rate FiO2 08/08/16 07:38 Room Air 08/08/16 06:04 36.7 60 16 119/64 97 Room Air 08/08/16 00:30 36.4 68 16 106/56 96 Room Air 08/08/16 00:00 Room Air 08/07/16 16:30 Room Air 08/07/16 15:11 36.6 72 18 123/81 98 Room Air 08/07/16 12:15 66 125/70 08/07/16 11:43 36.4 62 134/76 08/07/16 10:42 37.0 58 16 99 Room Air 08/07/16 09:11 Room Air 08/07/16 09:00 58 120/80 Assessment & Plan Assessment: POD#2 sp right DAMARI, direct anterior Inhouse Planning Pain Management: PO Tylenol, Oxy IR DVT Prophylaxis: TEDs, SCDs, ASA Discharge Planning Discharge Planning: home with home health ([facility])
[2016-08-08] MEDS ORDERED: CLB200 PO (07:53)
[2016-08-08] MEDS ORDERED: SNK PO (07:53)
[2016-08-08] MEDS ORDERED: OXYC1TAB3 PO (07:53)
[2016-08-08] MEDS ORDERED: ACET-1138 PO (07:53)
[2016-08-08] MEDS ORDERED: ONDA8TAB6 PO (07:53)
[2016-08-08] MEDS ORDERED: ASPEC81 PO (07:53)
[2016-08-08] MEDS ORDERED: CeleBREX 200 MG CAP PO SCH (21:00)
--- NOTE | 2016-08-20 14:17 | DISCHARGE SUMMARY ---
DISCHARGE DIAGNOSIS: Degenerative joint disease, right hip. SECONDARY DIAGNOSIS: None. CONSULTS: Dr. Hdz. COMPLICATIONS: None. PROCEDURE: The patient underwent a direct anterior right total hip arthroplasty with Dr. Donovan on 08/06/2016. BRIEF HISTORY: Please see previously dictated history and physical. HOSPITAL SUMMARY: The patient was admitted on the above day for the above procedure. Procedure went without complication. Postop day #1, the patient was feeling well without complaints. She denied chest pain or shortness of breath. Vital signs were stable. She was afebrile. Dressing was clean, dry and intact. She was neurovascularly intact. Calves were soft and nontender. Hemovac drained 225 and 80 mL. Hemoglobin was 9.7. The patient began physical therapy per protocol. Postop day #2, the patient was feeling well without complaints. Vital signs were stable. She was afebrile. She continued to progress with therapy and was discharged home later that day in stable condition. For further review please see the chart. Lab, x-ray data and discharge instructions as per chart.
== END 2016-08-08 12:16 | disposition home health service (06) | DRG 470 ==
LOC: ENRESERVTM → ENRESERVDT → C.ACU 06:27 → C.3E 08:00 → EDBEDREQ 12:29
PROVIDERS: ADMIT Orthopaedic Surgery; ATTEND Orthopaedic Surgery
PROC: 0SR904Z Replacement of Right Hip Joint with Ceramic on Polyethylene Synthetic Substitute, Open Approach (ICD-10-PCS; principal; 2016-08-06 09:15)
DX: M16.11 Unilateral primary osteoarthritis, right hip (principal); K51.90 Ulcerative colitis, unspecified, without complications; I95.9 Hypotension, unspecified; T88.59XA Other complications of anesthesia, initial encounter; T41.3X5A Adverse effect of local anesthetics, initial encounter; Y92.230 Patient room in hospital as the place of occurrence of the external cause; R00.0 Tachycardia, unspecified; M35.00 Sjogren syndrome, unspecified; K21.9 Gastro-esophageal reflux disease without esophagitis; I65.29 Occlusion and stenosis of unspecified carotid artery; F41.9 Anxiety disorder, unspecified; F32.9 Major depressive disorder, single episode, unspecified; Z86.14 Personal history of Methicillin resistant Staphylococcus aureus infection; Z96.642 Presence of left artificial hip joint; Z79.891 Long term (current) use of opiate analgesic; Z79.899 Other long term (current) drug therapy

== ENCOUNTER → 2016-09-26 | Outpatient (CLI) | payer OTHER ==
[~2016-09-26] MED LIST changes: +ACET-1138 PO; -ACETAMINOPHEN 500 MG TAB PO SCH; +ASPEC81 PO; +CLB200 PO; -CLINDAMYCIN 600 MG/54 ML D5W 54 ML IV SCH; -DEXAMETHASONE 4 MG TAB PO SCH; -FAMOTIDINE 20 MG TAB PO SCH; -GABAPENTIN 300 MG CAP PO SCH; -LACTATED RINGER'S 1000ML 1,000 ML IV SCH; -LACTATED RINGER'S 1000ML IV SCH; -METOCLOPRAMIDE HCL 10 MG TAB PO SCH; +ONDA8TAB6 PO; -OXYCODONE HCL 10 MG TABCR (OXYCONTIN) PO SCH; -POLYMYXIN B SULFATE 100,000 UNITS in NSS 100ML IR SCH; -ROPIVACAINE 5MG/ML 30 ML 150 MG, BUPIVACAINE/EPINEPHR 0.5% MPF 30 ML, KETOROLAC TROMETH... INFIL SCH; +SNK PO; -TRANEXAMIC ACID INJ 1,000 MG in SODIUM CHLORIDE 0.9% 100ML 100 ML IV SCH; -VANCOMYCIN INJ 400 MG in NSS 100ML IR SCH
== END | disposition home or self-care (01) ==
LOC: C.LABSPEC 16:57
PROVIDERS: ATTEND Urology
DX: R32 Unspecified urinary incontinence (principal); N39.0 Urinary tract infection, site not specified